=== PATIENT | female | born 1975 | race Caucasian/White ===

== ENCOUNTER 2020-11-05 03:32 | Inpatient (IN) | payer BC ==
[~2020-11-05] VITALS: Ht 172.7 cm; Wt 152.7 kg
[~2020-11-05 03:32] MED LIST: ATIVAN1 MG PO; BENTYL 10 MG CA10 MG PO; CLINDAMYCIN PO; HYDROCODON-ACE1 EAC7 PO; HYDROCODONE-AP1 EAC6 PO; LISINOPRIL20 MG; NORCO; NORCO 5-325 TA1 EACH PO; OMEPRAZOLE 20 M20 MG PO; ONDANSETRON HCL4 M2 PO; PHENERGAN 25 MG25 M1 PO; PRILOSEC; TRAMADOL 50 MG50 MG PO; XANAX 0.25 MG0.25 MG PO; XANAX 0.5 MG0.5 MG PO
[2020-11-05 03:39] VITALS: BP 159/85
[2020-11-05] MEDS ORDERED: PROTONIX40 M2 PO (03:43)
[2020-11-05] MEDS ORDERED: ADDERALL 10 MG10 MG PO (03:43)
[2020-11-05 03:59] LABS: ABSOLUTE EOSINOPHILS 0.2 thou/uL (0.0-0.7); ABSOLUTE NEUTROPHILS 4.7 thou/uL (1.6-8.1); EOSINOPHILS 2.8 %; HEMATOCRIT 39.1 % (37.0-47.0); MCH 27.7 pg (26.0-34.0); MCHC 32.9 g/dL (28.0-37.0); MCV 84.3 fL (80.0-100.0); NUCLEATED RBCS 0 /100WBC
[2020-11-05 04:14] LABS: ABSOLUTE LYMPHOCYTES 2.2 thou/uL (0.8-5.3); ABSOLUTE MONOCYTES 0.3 thou/uL (0.0-1.2); BASOPHILS 0.4 %; CALCIUM 8.5 mg/dL (8.5-10.1); CREATININE 0.6 mg/dL (0.6-1.3); HEMOGLOBIN 12.9 gm/dL (12.0-15.0); LYMPHOCYTES 29.5 %; MONOCYTES 4.4 %; MPV 7.6 fl. (7.2-11.1); PLATELET COUNT* 262 thou/uL (150-400); POLYS 62.9 %; RBC 4.64 mil/uL (4.20-5.00); WBC 7.5 thou/uL (4.0-11.0)
[2020-11-05 04:16] LABS: INR 0.9; PROTIME 10.1 Seconds (9.20-11.50)
[2020-11-05 04:24] LABS: ALBUMIN 3.1 g/dL (3.4-5.0); MAGNESIUM 1.8 mg/dL (1.8-2.4); TOTAL BILIRUBIN 0.2 mg/dL (<0.1-1.0); TOTAL PROTEIN 6.1 g/dL (6.4-8.2)
[2020-11-05 04:29] LABS: INFLUENZA A ANTIGEN Negative (Negative); INFLUENZA B ANTIGEN Negative (Negative)
[2020-11-05 07:49] LABS: URINE BILIRUBIN NEGATIVE (Negative); URINE BLOOD TRACE (Negative); URINE CLARITY CLEAR; URINE COLOR YELLOW; URINE GLUCOSE-RANDOM NEGATIVE (Negative); URINE KETONES NEGATIVE (Negative); URINE LEUKOCYTES-REFLEX NEGATIVE (Negative); URINE NITRITE-REFLEX NEGATIVE (Negative); URINE PROTEIN TRACE (Negative); URINE SPECIFIC GRAVITY >= 1.030 (1.005-1.030); URINE UROBILINOGEN 0.2 E.U./dl (0.2-1.0)
[2020-11-05 08:34] VITALS: BP 132/77
[2020-11-05 09:00] VITALS: BP 117/57
[2020-11-05 12:00] VITALS: BP 118/63
--- NOTE | 2020-11-05 12:45 | EKG ---
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: PAUL : 1975 Requested By: Nery Shaver Order Number: [id number] MD: Howard Moseley Measurements Intervals [place] Rate: 106 P: 39 MI: 119 QRS: 25 QRSD: 92 T: 24 QT: 345 QTc: 459 Interpretive Statements Sinus tachycardia Compared to ECG 01/26/2014 09:37:57 No significant changes Electronically Signed On 11-05-2020 12:45:14 ADVANCED PRACTICE NURSE PSYCHOTHERAPIST by Howard Moseley [email or web address] <ELECTRONICALLY SIGNED> By: Howard Moseley MD, FAC 11/05/20 1245 0338 0338 Howard Moseley MD, [facility] /EPI
[2020-11-05 16:41] VITALS: BP 117/50
[2020-11-05 20:30] VITALS: BP 113/58
[2020-11-06] VITALS: BP 107/45
--- NOTE | 2020-11-06 02:17 | NUR ---
PT CO CHEST PRESSURE LEFT SIDE OF CHEST. EKG OBTAINED AND REVIEWED BY WELDER REPAIR. NO CHANGES FROM EARLIER EKG, ST.
[2020-11-06 04:00] VITALS: BP 119/60
[2020-11-06 04:30] VITALS: BP 124/63
--- NOTE | 2020-11-06 06:35 | NUR ---
PT SLEPT FAIRLY WELL AFTER MIDNIGHT SHE STATES. O2 2L SATS MID 90'S. L FA SL IV, ZOFRAN GIVEN ONCE FOR CO NAUSEA WITHOUT EMESIS. RECEIVED SCHEDULED TRAMADOL AND XANAX. CO CHEST PAIN, PRESSURE, EKG OBTAINED OVERNIGHT WITH REPORT OF CHEST PAIN, NO ACUTE EVENTS NOTED. UP AD JORDYN WITH O2 IN ROOM TO BR TO VOID. TELE . NO LABS THIS MORNING. ABLE TO USE CALL LITE AND MAKE NEEDS KNOWN.
[2020-11-06 08:15] VITALS: BP 123/77
--- NOTE | 2020-11-06 11:18 | NUR ---
Infectection Prevention: [facility] Dept reports pt had a Positive Covid 19 PCR on 10/24/20.
--- NOTE | 2020-11-06 11:21 | NUR ---
cm completed the initial assessment to discuss d/c plan. pt is a&04. pt lives at home with spouse. pt has adult children. pt has 0 dmes. pt has no hx w/snf or hh. pt is active, employeed, drives and independent w/cares. pt is currelty on 2l of o2 nc. cm to cont to following to assist w/ d/c needs.
[2020-11-06 12:00] VITALS: BP 124/63
--- NOTE | 2020-11-06 14:29 | EKG ---
[place] [address] ELECTROCARDIOGRAM REPORT Name: BAKERGREGORY HORTON Room: [address] IN .R.#: [id number] Admission: 11/05/20 Attend Phys: Tanvir Vu, Discharge: Date of : 71 Date of Service: 11/06/20 0113 Report #: [id number] THIS REPORT FOR: //name// [facility] Test Date: 2020-11-06 Test Time: 01:13:23 Pat Name: GREGORY BAKER Department: Room: [address] Gender: F Alley Worker: JColleen : 1975 Requested By: Tanvir Vu Order Number: [id number] MD: Fortunato Pedersen Measurements Intervals [place] Rate: 106 P: 48 HI: 122 QRS: 24 QRSD: 97 T: 9 QT: 353 QTc: 469 Interpretive Statements Sinus tachycardia Probable left atrial enlargement Compared to ECG 11/05/2020 03:38:16 No significant changes Electronically Signed On 11-06-2020 14:29:44 CASH REGISTER MECHANIC by Fortunato Pedersen [email or web address] <ELECTRONICALLY SIGNED> By: Fortunato Pedersen MD, FACC 11/06/20 1429 0113 0113 Fortunato Pedersen MD, [facility] /EPI
[2020-11-06] MEDS ORDERED: VENLAFAXINE HC150 M1 PO (16:46)
[2020-11-06 21:20] VITALS: BP 124/75
--- NOTE | 2020-11-06 21:23 | NUR ---
Pt remained A&O x4 for entire shift. Vital signs stable on 2L O2. Pt complained of headache. Pt given meds per DEC. Pt pleasant with staff. Pt showered this afternoon independently. Bed in low position, call light within reach.
--- NOTE | 2020-11-07 07:43 | NUR ---
PATIENT HAS SLEPT WELL THROUGHOUT MOST OF THE NIGHT. VSS ON 2L 02 VIA NASAL CANNULA. PATIENT HAVING SOME SOA AT TIMES AND NEEDING BREATHING TX. PATIENT STILL STATES THAT SHE IS HAVING SLIGHT TIGHTNESS/PRESSURE IN CHEST AND COUGHS FREQUENTLY BUT WAS NOT NOTIFIED OF IT BEING PRODUCTIVE. PATIENT IS UP AD-JORDYN AND STEADY. MEDICATIONS GIVEN ORDERED AND CHARTED. ASSESSMENT CHARTED. IV IN LEFT FOREARM-SL. PATIENT INSTRUCTED TO USE CALL LIGHT WHEN NEEDING ASSISTANCE. HOURLY ROUNDS MADE. WILL CONTINUE WITH PLAN OF CARE AND NURSING TO MONITOR.
[2020-11-07 10:35] VITALS: BP 118/83
[2020-11-07] MEDS ORDERED: PROAIR HFA8.5 GM INH (11:01)
[2020-11-07] MEDS ORDERED: AZITHROMYCIN500 MG PO (11:01)
[2020-11-07] MEDS ORDERED: CEFDINIR300 MG PO (11:01)
[2020-11-07] MEDS ORDERED: PREDNISONE 10 M10 MG PO (11:03)
--- NOTE | 2020-11-07 17:00 | NUR ---
Patient discharged home. Discharge instructions provided. Per patient request [place] [place] called to [facility], paper scripts given to patient. Patient personal car in the ED parking. Discharged and drove personal vehicle. Patient in stable conditon at the time of discharge.
== END 2020-11-07 17:00 | disposition home or self-care (01) | DRG 193 ==
LOC: M.ERS 03:32 → M.TBA-ER 06:06 → M.ORTHSURG 06:06
PROVIDERS: Emergency Medicine; ADMIT Internal Medicine; ATTEND Internal Medicine
DX: J15.9 Unspecified bacterial pneumonia (principal); J96.01 Acute respiratory failure with hypoxia; E44.1 Mild protein-calorie malnutrition; I10 Essential (primary) hypertension; Z86.16 Personal history of COVID-19; E66.9 Obesity, unspecified; Z20.822 Contact with and (suspected) exposure to COVID-19; Z90.710 Acquired absence of both cervix and uterus; Z68.43 Body mass index [BMI] 50.0-59.9, adult; Z88.6 Allergy status to analgesic agent; Z88.2 Allergy status to sulfonamides; Z79.899 Other long term (current) drug therapy

== ENCOUNTER 2020-11-12 13:37 | Emergency (ER) | payer BC ==
[~2020-11-12] VITALS: Ht 172.7 cm; Wt 136.1 kg
[~2020-11-12 13:37] MED LIST changes: +ADDERALL 10 MG10 MG PO; +AZITHROMYCIN500 MG PO; +CEFDINIR300 MG PO; +PREDNISONE 10 M10 MG PO; +PROAIR HFA8.5 GM INH; +PROTONIX40 M2 PO; +VENLAFAXINE HC150 M1 PO
--- NOTE | 2020-11-12 14:26 | EKG ---
[place] [address] ELECTROCARDIOGRAM REPORT Name: GREGORY BAKER Room: [facility]#: [id number] Admission: 11/12/20 Attend Phys: Discharge: Date of : 71 Date of Service: 11/12/20 1347 Report #: [id number] THIS REPORT FOR: //name// [facility] ED Test Date: 2020-11-12 Test Time: 13:47:59 Pat Name: GREGORY BAKER Department: Room: Gender: Restaurant Team Member: : 1975 Requested By: Sarath Quiles Order Number: [id number] MD: Meek Jackson Measurements Intervals [place] Rate: 90 P: 45 HI: 114 QRS: 16 QRSD: 94 T: 13 QT: 356 QTc: 436 Interpretive Statements Sinus rhythm Borderline short HI interval Compared to ECG 11/06/2020 01:13:23 Sinus tachycardia no longer present Electronically Signed On 11-12-2020 14:26:13 COMPOSING ROOM MACHINIST by Meek Jackson [email or web address] <ELECTRONICALLY SIGNED> By: Meek Jackson MD, [facility] 11/12/20 1426 1347 1347 Meek Jackson MD, FAC /EPI
[2020-11-12] MEDS ORDERED: PERCOCET 5-3251 EACH PO (14:48)
[2020-11-12] MEDS ORDERED: XANAX 0.5 MG0.5 MG PO (14:48)
[2020-11-12] MEDS ORDERED: IPRAT-ALBUT 0.5-3 ML NEB (14:48)
[2020-11-12 14:58] VITALS: BP 136/80
== END 2020-11-12 14:58 | disposition home or self-care (01) ==
LOC: M.ERS 13:37
DX: F41.0 Panic disorder [episodic paroxysmal anxiety] (principal); R06.00 Dyspnea, unspecified; I10 Essential (primary) hypertension; Z88.5 Allergy status to narcotic agent; Z88.2 Allergy status to sulfonamides; Z79.899 Other long term (current) drug therapy; Z79.2 Long term (current) use of antibiotics